=== PATIENT | female | born 1955 | race Caucasian/White ===

== ENCOUNTER 2018-07-29 06:37 | Day surgery (SDC) | payer BC ==
--- NOTE | 2018-07-26 20:38 | HP ---
CC: Olvin Cheek MD * PREOPERATIVE HISTORY AND PHYSICAL: DATE OF ADMISSION: 07/29/18 This patient is scheduled for a same day surgery admission by Dr. Hallman on 07/29/18. ATTENDING PHYSICIAN: Tiffany Hallman MD * (dictated by Janet Ramsey NP ) CHIEF COMPLAINT: Right breast cancer. HISTORY OF PRESENT ILLNESS: The patient is a 63-year-old female recently evaluated by Dr. Hallman for a new diagnosis of right breast cancer. She had a routine mammogram on 06/20/18 and a new abnormality was found in the right breast and she underwent a core biopsy of the lesion on 07/13/18 and was diagnosed with invasive ductal carcinoma. The abnormality was shown to be solid on ultrasound. She denies any breast pain or nipple discharge; she denies any family history of breast cancer or ovarian cancer. Age of menarche was 14; first delivery was at age 19; she took control pills for less than 10 years. She has never received radiation to the chest. She did breast feed. Dr. Hallman examined the patient and reviewed the above findings with her and has recommended needle localization excision of the right breast cancer and sentinel lymph node biopsy as a same day surgery procedure; she described the nature of the surgical procedure, the rationale for the procedure, relevant risks, benefits, and alternatives and today I reviewed the expected postoperative care and recovery. The patient has had a chance to ask questions and stated that she understands the information and is satisfied with the answers given to her questions. She will sign surgical consent on the day of surgery. PAST MEDICAL HISTORY: Hypertension and she is followed for primary care by Dr. Cheek; obesity. PAST SURGICAL HISTORY: section x3. OB HISTORY: 3, para 3. She recently had a pelvic exam and an endometrial biopsy. She has occasional vaginal spotting. MEDICATIONS: 1. Atenolol 50 mg p.o. daily. 2. Lovastatin 20 mg p.o. daily at bedtime. 3. Amlodipine 10 mg p.o. daily. ALLERGIES: No known drug allergies. FAMILY HISTORY: Mother at age 43 with cerebral hemorrhage. Father at age 81 with heart attack. No known anesthesia complications, bleeding tendencies, or clotting disorders in the family. 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 She denies the use of alcohol or other substances. REVIEW OF SYSTEMS: Constitutional: No fevers, chills, excessive fatigue, or weight loss. Endocrine: No diabetes or thyroid disease. Hematologic: No easy bruising or bleeding or history of blood transfusions. Breast: As described in history of present illness, abnormal right breast. Respiratory: Nonsmoker. No dyspnea on exertion. No chronic cough. Cardiovascular: She is followed for hypertension. No anginal chest pain or palpitations. She states that Dr. Cheek sent her for a renal ultrasound to rule out renal artery stenosis or an adrenal mass as a cause of her hypertension and was told that those results were within normal limits and that her recent lab values were also within normal limits. She denies any anginal chest pain or palpitations. Gastrointestinal: No nausea, vomiting, diarrhea, GI bleeding, or constipation. Genitourinary: No dysuria. Musculoskeletal: No back or joint pain. Integumentary: No chronic rashes or skin changes. Neurologic: No headache or blurred vision or areas of focal weakness. General: No history of deep vein thrombosis or pulmonary embolism. She states with epidural anesthesia in 1984 that she came out of it very agitated and had tremors. PHYSICAL EXAMINATION GENERAL SURVEY: The patient is a 63-year-old obese female in no acute distress. VITAL SIGNS: Height 65 inches, weight 228 pounds, body mass index 37.9. Blood pressure 138/82, pulse 62 and regular, respiratory rate 16, temperature 98.7. HEENT: Benign. NECK: Supple. No cervical lymphadenopathy. No supraclavicular lymphadenopathy. BACK: No CVA tenderness. LUNGS: Breath sounds bilaterally clear and equal. BREASTS: Right breast no discrete masses on palpation. Biopsy site well healed , no infection. Left breast no discrete masses palpated. Nipples are normal to inspection. No discharge. No palpable axillary lymphadenopathy. HEART: Regular rate and rhythm. No murmurs or rubs appreciated. ABDOMEN: Obese, soft, nontender throughout. No obvious masses or organomegaly or evidence of ventral hernia, but exam is limited by body habitus. Well- healed surgical scar. PELVIC and RECTAL: Exams done recently, not repeated. EXTREMITIES: Warm. There is mild edema of both ankles, no pitting. NEUROLOGIC: Alert and oriented x3, steady gait. SKIN: Warm, dry, intact. IMPRESSION: Right breast cancer. PLAN/RECOMMENDATIONS: Same day surgery admission to Dr. Hallman's service on 07/29/18, for needle localization excision of right breast cancer and sentinel lymph node biopsy. TORRES RAMSEY, AEROTRIANGULATION SPECIALIST [id number]/[facility] #: [id number] JOE
[~2018-07-29 06:37] MED LIST: Buffered Lidocaine 0.9% SYRIN* 5 ML/SYR SYRINGE INTRADERM ONE; Dexamethasone TAB* 4 MG PO ONE; DiMENhydriNATE IV* 50 MG/ML VIAL IV PUSH PRN; Famotidine IV* 10 MG/ML 2 ML (20 mg) IV ONE; Naloxone* 0.4 MG/ML 1 ML VIAL IV PRN; Ondansetron TAB* 4 MG PO ONE; PROCHLORPERAZINE INJ 5 MG/ML 2 ML VIAL IV PRN; Scopolamine 1.5 mg* PATCH TRANSDERM PRN; fentaNYL* 50 MCG/ML 2 ML VIAL (100 MCG VIAL) IV PRN; oxyCODONE/Acetamin 5/325 MG* TAB PO PRN
[2018-07-29] MEDS ORDERED: Lidocaine 2.5%/Prilocain 2.5%* 5 GM TUBE ONE (06:54)
[2018-07-29] MEDS ORDERED: Methylene Blue 0.5 %* 50 MG/10 ML AMP IV ONE (07:11)
[2018-07-29] MEDS ORDERED: Bupivacaine 0.5% SDV PF* 30ML VIAL ONE (07:12)
[2018-07-29] MEDS ORDERED: Bupivacaine 0.25% EPI 200,000* 30 ML SDV ONE (07:12)
[2018-07-29] MEDS ORDERED: Lidocaine 1% INJ* 10 MG/ML 30 ML SDV ONE (07:12)
[2018-07-29] MEDS ORDERED: KETAMINE HCL* 50 MG/ML 10 ML VIAL ONE (08:25)
[2018-07-29] MEDS ORDERED: Midazolam* 1 MG/ML 5 ML VIAL (5 MG) ONE (08:25)
[2018-07-29] MEDS ORDERED: fentaNYL* 50 MCG/ML 2 ML VIAL (100 MCG VIAL) ONE (08:25)
[2018-07-29] MEDS ORDERED: Famotidine IV* 10 MG/ML 2 ML (20 mg) ONE (10:41)
[2018-07-29] MEDS ORDERED: Heparin VIAL(*) 5000 UNITS/ML VIAL (FIVE THOUSAND) ONE (10:41)
[2018-07-29] MEDS ORDERED: Dexamethasone TAB* 4 MG ONE (10:42)
[2018-07-29] MEDS ORDERED: Ondansetron ODT TAB* 4 MG ONE (10:42)
[2018-07-29] MEDS ORDERED: ceFAZolin 2 GM in NS PREMIX(*) 2 GM/100 ML BAG IVPB ONE (10:42)
[2018-07-29] MEDS ORDERED: Lidocain 1% EPI 1:100,000 * 30 ML MDV ONE (11:15)
[2018-07-29] MEDS ORDERED: Propofol* 10 MG/ML 20 ML BTL IV PUSH ONE (12:49)
[2018-07-29] MEDS ORDERED: Lidocaine 2% PF * 5 ML VIAL ONE (12:49)
[2018-07-29] MEDS ORDERED: Propofol* 500 MG/50 ML BTL ONE (12:49)
[2018-07-29] MEDS ORDERED: Acetaminophen TAB* 325 MG ONE (14:24)
[2018-07-29] MEDS ORDERED: Ketorolac INJ* 30 MG/ML 1 ML VIAL ONE (14:25)
--- NOTE | 2018-07-29 14:29 | RAD ---
Indication: Breast cancer nodule for localization for lumpectomy. Real-time sonography of the right breast was performed. At the 10:00 position approximately 10 cm from the nipple there is a small ovoid hypoechoic lesion that was previously biopsied. Under direct ultrasound guidance and using usual aseptic technique a 7.5 cm needle was placed adjacent to the hypoechoic mass. Guidewire was then placed. Right breast mammogram was then performed for localization. This was done to confirm needle placement. The guidewire is placed adjacent to the nodule and radiopaque marker. IMPRESSION: Successful ultrasound-guided localization and guidewire insertion of a wire into the right breast. This is adjacent to the radiopaque marker and presumed abnormality which is nodular in nature.
--- NOTE | 2018-07-29 14:32 | RAD ---
Indication: [place] node localization, breast cancer. Approximately 0.3 mCi of technetium 99 and sulfur colloid was placed in the periareolar region from 9:00 to 3:00 in the superior half of the area left for sentinel node localization. A sentinel node was localized. An indelible marker was placed adjacent to the lymph node. IMPRESSION: Successful sentinel node localization in the right axilla.
[2018-07-29 14:48] VITALS: BP 134/88
--- NOTE | 2018-07-30 00:55 | OP ---
CC: [facility]; Dr. Olvin Cheek; [facility] OPERATIVE REPORT: DATE OF OPERATION: 07/29/18. DATE OF : 55. SURGEON: Tiffany Hallman MD. RESIDENTIAL FRAMING CARPENTER: Janet Ramsey NP. PRE-OP DIAGNOSIS: Right breast cancer. POST-OP DIAGNOSIS: Right breast cancer. OPERATIVE PROCEDURE: Needle localization excision of right breast cancer. INDICATIONS: Ms. Lopez is a 63-year-old woman, who was diagnosed with breast cancer by stereotactic biopsy. This prompted the plan for surgical interventions. On the morning of surgery, she underwent needle localization and sentinel lymph node localization without difficulty. DESCRIPTION OF PROCEDURE: She was then brought to the operating room, placed on the OR table in supi ne position and given IV sedation. The right breast was prepped and draped in the usual sterile fash ion taking care not to dislodge the localizing wire and to include the axilla in the prep. After inf iltrating with local anesthetic, a curvilinear elliptical incision encompassing the wire was made and subcutaneous tissue was then divided with electrocautery to excise the massive tissue. The initial massive tissue pulled away from the tip of the wire and later in the wire in the breast as the tissue pulled away. This was marked in the usual fashion and handed off as the specimen. A second specime n was then taken that included the wire. This was done also by electrocautery. This was also marked in the usual fashion and identified as tissue that was posterior to and adjacent to the first specim en. Hemostasis was then assured with electrocautery and then a search was made for the sentinel node . This was noted to be in reach of the breast incision, so using the navigator, the axillary fat pad was identified, grasped, and then the navigator was again used to identify the location of the senti janessa node. It was dissected free using sharp dissection and clips, and were used to control small lymp hatic and blood vessels that approached the gland as in situ counts were 178. Its ex vivo counts wer e 169, and the axillary bed counts were 0. Further hemostasis was achieved with electrocautery. The wound was irrigated with saline. Additional local was instilled into the wound and then closure was accomplished. This was done with 3-0 Vicryl in the subcutaneous layer and the skin was closed with 4- 0 Prolene in a subcuticular fashion. Steri-Strips and a dry sterile dressing were applied. The repo rt came back from Radiology that they had the lesion, the clip, and the wire confirming that specimen was removed successfully. All sponge and instrument counts were correct. The patient tolerated the procedure well and was transferred to Recovery in a stable condition. [id number]/[facility] #: [id number]
[2018-08-01] MEDS ORDERED: Scopolamine PATCH Remove* 1 NOTE MISC PATCH OFF ONE (05:59)
== END 2018-07-29 15:35 | disposition home or self-care (01) ==
LOC: OR 06:37
PROVIDERS: ATTEND Surgery
DX: C50.411 Malignant neoplasm of upper-outer quadrant of right female breast (principal); I10 Essential (primary) hypertension; Z87.891 Personal history of nicotine dependence
CPT/HCPCS: 77061; 78195; 88307; 88342; A9270-GY; A9541; G0279; J0690; J1644; J1885; J2250; J2704; J3010; J8540